=== PATIENT | female | born 1945 | race Caucasian/White ===

== ENCOUNTER 2018-03-22 22:49 | Observation (INO) ==
--- NOTE | 2018-03-22 23:07 | ED ---
HPI General Chief complaint: Nausea/Vomiting/Diarrhea Stated complaint: vomiting/evac Time Seen by Provider: 03/22/18 22:58 Source: patient Mode of arrival: ambulatory Limitations: no limitations History of Present Illness HPI Narrative: Patient is a 73-year-old female who presents the emergency room for evaluation of nausea, vomiting and diarrhea. Patient reports that prior to coming to the emergency room, she ate some SOBE noodles at [employer]. Reports that she then went to the movie theater to watch a movie. Patient reports that during this movie, she began to feel sick. Patient reports that she went to the bathroom and vomited multiple patient reports that she felt sick to her stomach and then had multiple episodes of diarrhea. Reports that she felt as if she was going to pass out so she laid on the ground where bystanders found her and called EMS for help. Patient reports no chest pain or shortness of breath, no headache or dizziness, no abdominal pain, patient is reports that she feels nauseous and sick to her stomach. MD complaint: Reports nausea, vomiting and diarrhea Onset (ago): hour(s) Description of Vomiting: food contents Description of Diarrhea: resolved Associated Abdominal Pain: No Quality: Reports cramping and aching Pain Consistency: now resolved Relieving factors: vomiting Exacerbating factors: eating Associated symptoms: Reports nausea/vomiting Related Data Home Medications Medication Instructions Recorded Confirmed amlodipine 10 mg PO DAILY 03/22/18 03/22/18 clonidine HCl 0.1 mg PO DAILY PRN 03/22/18 03/22/18 hydrocodone-acetaminophen 1 tab PO Q8H PRN 03/22/18 03/22/18 labetalol 200 mg PO Q6H 03/22/18 03/22/18 lisinopril 20 mg PO DAILY 03/22/18 03/22/18 lorazepam 1 mg PO HS 03/22/18 03/22/18 melatonin 10 mg PO HS PRN 03/22/18 03/22/18 omeprazole-sodium bicarbonate 2 cap PO DAILY 03/22/18 03/22/18 [Zegerid] pravastatin 40 mg PO DAILY 03/22/18 03/22/18 tizanidine 4 mg PO DAILY 03/22/18 03/22/18 triamterene-hydrochlorothiazid 0.5 cap PO DAILY 03/22/18 03/22/18 Allergies Allergy/AdvReac Type Severity Reaction Status Date / Time No Known Allergies Allergy Verified 03/22/18 23:08 Review of Systems ROS: all other systems reviewed are negative PMFSH History History Provided By: Patient Medical History Medical History History of high blood pressure (Acute) History of high cholesterol (Acute) Hx of hysterectomy (Acute) Hx of osteoarthritis (Acute) Surgical History Surgical History History of mandibular surgery (Acute) History of orthopedic surgery (Acute) History of tubal ligation (Acute) Hx of cholecystectomy (Acute) Social History Social History Substance History: No History of Abuse Smoking Status: Never smoker How Often Do You Have a Drink Containing Alcohol: 2 to 4 times a month Recent Travel in [facility] within the Last 8 Weeks: No Recent Out of Country Travel within the Last 8 Weeks: No Exam Narrative Exam Narrative: GENERAL: moderate distress SKIN: Focused skin assessment warm/dry. HEAD: Atraumatic. Normocephalic. EYES: Pupils equal and round. No scleral icterus. No injection or drainage. ENT: No nasal bleeding or discharge. Mucous membranes pink and moist. NECK: Trachea midline. No JVD. CARDIOVASCULAR: Regular rate and rhythm. No murmur appreciated. RESPIRATORY: No accessory muscle use. Clear to auscultation. Breath sounds equal bilaterally. GASTROINTESTINAL: Abdomen soft, non-tender, nondistended. Hepatic and splenic margins not palpable. MUSCULOSKELETAL: No obvious deformities. No clubbing. No cyanosis. No edema. NEUROLOGICAL: Awake and alert. No obvious cranial nerve deficits. Motor grossly within normal limits. Normal speech. PSYCHIATRIC: Appropriate mood and affect; insight and judgment normal. Course Initial Documented Vital Signs Temperature 98.6 F 03/22/18 23:04 Pulse Rate 78 03/22/18 23:04 Respiratory Rate 16 03/22/18 23:04 Blood Pressure 167/64 H 03/22/18 23:04 Pulse Oximetry 100 03/22/18 23:04 Last Documented Vital Signs Temperature 98.6 F 03/22/18 23:04 Pulse Rate 95 H 03/23/18 02:49 Respiratory Rate 16 03/23/18 02:49 Blood Pressure 167/60 H 03/23/18 02:49 Pulse Oximetry 98 03/23/18 02:49 Medical Decision Making MDM Narrative Medical decision making narrative: During the course of the patients emergency department visit, the patients history, examination, and differential diagnosis were reviewed with the patient. The patient was placed on a panel monitor with oximetry and frequent blood pressure monitoring. The patient had an IV access obtained and blood work sent for analysis. The patient was initially provided IV zofran, IV fluids At 1147pm - patient with multiple episodes of diarrhea - stool culture for cdiff ordered. The patients laboratory studies were reviewed and remarkable for wbc 17.9, hgb 12.1, hct 34.6, platelets 309 sodium 142, potassium 4.0, carbon dioxide 20.4, chloride 114, BUN19 creatinine 0.77, magnesium is 1.4, calcium 8.4 C. difficile cultures are pending. CT of abdomen pelvis shows no obstruction or acute/focal inflammatory changes. She has a fatty liver, upper limits of normal to mildly enlarged. Patient was reevaluated, patient reports that she is not feeling any better, she has not been able to stop having diarrhea since she has been in the emergency room. Patient does not feel strong enough to go home, plan to observe overnight for IV fluids as well as antiemetics and serial abdominal evaluations. case reviewed with Dr. White who accepts pt to service Medical Screen Exam Complete: Yes Emergency Medical Condition: Yes Differential Diagnosis Differential Diagnosis: Differential includes gastritis, gastroenteritis, ACS, arrhythmia, electrolyte abnormality, food poisoning Medical Records Medical records reviewed: Yes I reviewed the patient's medical records. Lab Data Result diagrams: 03/23/18 00:40 03/23/18 00:40 Lab Results 03/23/18 03/23/18 Range/Units 00:40 00:40 CBC w Diff Slide review pending WBC 17.9 H (4.0-11.0) th/mm3 RBC 3.97 L (4.00-5.30) mil/mm3 Hgb 12.1 (11.6-15.3) gm/dL Hct 34.6 L (35.0-46.0) % MCV 87.1 (80.0-100.0) fL MCH 30.6 (27.0-34.0) pg MCHC 35.1 (32.0-36.0) % RDW 11.9 (11.6-17.2) % Plt Count 309 (150-450) th/mm3 MPV 8.4 (7.0-11.0) fL Neut % (Auto) 87.6 H (16.0-70.0) % Lymph % (Auto) 3.2 L (9.0-44.0) % [place] % (Auto) 7.5 (0.0-8.0) % Eos % (Auto) 0.4 (0.0-4.0) % Baso % (Auto) 1.3 (0.0-2.0) % Neut # (Auto) 15.7 H (1.8-7.7) th/mm3 Lymph # (Auto) 0.6 L (1.0-4.8) th/mm3 [place] # (Auto) 1.3 H (0.0-0.9) th/mm3 Eos # (Auto) 0.1 (0.0-0.4) th/mm3 Baso # (Auto) 0.2 (0.0-0.2) th/mm3 Differential Comment . Sodium 142 (136-145) meq/L Potassium 4.0 (3.5-5.1) meq/L Chloride 114 H (98-107) meq/L Carbon Dioxide 20.4 L (21.0-32.0) meq/L Anion Gap 8 (5-15) meq/L BUN 19 H (7-18) mg/dL Creatinine 0.77 (0.50-1.00) mg/dL Estimated GFR 73 L (>89) mL/min Random Glucose 130 H (74-106) mg/dL Calcium 8.4 L (8.5-10.1) mg/dL Magnesium 1.4 L (1.5-2.5) mg/dL Total Bilirubin 0.2 (0.2-1.0) mg/dL AST 21 (15-37) U/L ALT 21 (10-53) U/L Alkaline Phosphatase 83 (45-117) U/L Total Creatine Kinase 219 H (26-192) U/L CK-MB (CK-2) 2.1 (0.5-3.6) ng/mL CK-MB (CK-2) % 1.0 (0.0-4.0) % Troponin I Less than 0.02 L (0.02-0.05) ng/mL Total Protein 7.2 (6.4-8.2) g/dL Albumin 3.7 (3.4-5.0) g/dL Lipase 59 L (73-393) U/L Imaging Data Radiologist's impression: Chest X-Ray 03/22/18 23:10 CONCLUSION: No evidence of acute cardiopulmonary disease. Abdomen/Pelvis CT 03/23/18 01:51 CONCLUSION: 1. No obstruction or acute/focal inflammatory changes. 2. Fatty liver, upper limits of normal to mildly enlarged. 3. Previous cholecystectomy and hysterectomy. ECG Data EKG Prior to Arrival: No Attestation: I personally reviewed and interpreted this ECG as follows: Prior ECG tracings: available for review Interpretation: EKG at 0036: NSR at 80bpm, qt/qtc: 369/405, nonspecific t wave changes - there is no change when compared to her previous ekg from 2007 which she carries with her at all times Discharge Plan Discharge Disposition Patient Disposition: 30 Still Patient Discharge Condition Condition: Fair Discharge Details Diagnosis: Intractable diarrhea, Intractable nausea and vomiting Physicians Team ED Provider: Doreen Seaman Primary Care Provider: Renzo Zambrano Rxs /Orders / Referrals /Forms Prescriptions: No Action clonidine HCl 0.1 mg Tablet 0.1 mg PO DAILY PRN (Reason: Hypertension) RF: 0 labetalol 200 mg Tablet 200 mg PO Q6H RF: 0 pravastatin 40 mg Tablet 40 mg PO DAILY RF: 0 tizanidine 4 mg Tablet 4 mg PO DAILY RF: 0 lisinopril 20 mg Tablet 20 mg PO DAILY RF: 0 hydrocodone-acetaminophen 10-325 mg Tablet 1 tab PO Q8H PRN (Reason: Pain) RF: 0 triamterene-hydrochlorothiazid 37.5-25 mg Capsule 0.5 cap PO DAILY RF: 0 amlodipine 10 mg Tablet 10 mg PO DAILY RF: 0 lorazepam 1 mg Tablet 1 mg PO HS RF: 0 omeprazole-sodium bicarbonate [Zegerid] 20-1.1 mg-gram Capsule 2 cap PO DAILY RF: 0 melatonin 10 mg Tablet 10 mg PO HS PRN (Reason: Sleep) RF: 0 Status ED Status: With Doctor
[2018-03-22] MEDS ORDERED: Famotidine PF Inj 20 MG/2 ML Vial IV.PUSH ONE (23:10)
[2018-03-22] MEDS ORDERED: Sod Chloride 0.9% Inj 1,000 ML IV.SIG ONE (23:10)
--- NOTE | 2018-03-23 00:48 | XR ---
EXAM DATE: 03/23/2018 12:40 AM EDT AGE/SEX: 73 years / Female INDICATIONS: Short of breath. CLINICAL DATA: This is the patient's initial encounter. Patient reports that signs and symptoms have been present for 1 day and indicates a pain score of 0/10. MEDICAL/SURGICAL HISTORY: None. None. COMPARISON: No prior exams available for comparison. FINDINGS: No infiltrate, effusion or pneumothorax demonstrated. Mild, symmetric and benign-appearing biapical p leural thickening/scarring seen. Cardiomediastinal silhouette within normal limits. CONCLUSION: No evidence of acute cardiopulmonary disease. Electronically signed by: Chema Santiago MD 03/23/2018 12:47 AM EDT
[2018-03-23 00:57] LABS: Baso # (Auto) 0.2 th/mm3 (0.0-0.2); Baso % (Auto) 1.3 % (0.0-2.0); Eos # (Auto) 0.1 th/mm3 (0.0-0.4); Eos % (Auto) 0.4 % (0.0-4.0); Hematocrit 34.6 % (35.0-46.0); Hemoglobin 12.1 gm/dL (11.6-15.3); Lymph # (Auto) 0.6 th/mm3 (1.0-4.8); Lymph % (Auto) 3.2 % (9.0-44.0); Mean Corpuscular HGB Conc 35.1 % (32.0-36.0); Mean Corpuscular Hemoglobin 30.6 pg (27.0-34.0); Mean Corpuscular Volume 87.1 fL (80.0-100.0); Mean Platelet Volume 8.4 fL (7.0-11.0); Mono # (Auto) 1.3 th/mm3 (0.0-0.9); Mono % (Auto) 7.5 % (0.0-8.0); Neut # (Auto) 15.7 th/mm3 (1.8-7.7); Neut % (Auto) 87.6 % (16.0-70.0); Platelet Count 309 th/mm3 (150-450); Red Blood Count 3.97 mil/mm3 (4.00-5.30); Red Cell Distribution Width 11.9 % (11.6-17.2); White Blood Count 17.9 th/mm3 (4.0-11.0)
[2018-03-23 01:18] LABS: Chloride 114 meq/L (98-107); Sodium 142 meq/L (136-145)
[2018-03-23 01:21] LABS: Calcium 8.4 mg/dL (8.5-10.1)
[2018-03-23 01:22] LABS: Albumin 3.7 g/dL (3.4-5.0); Anion Gap 8 meq/L (5-15); Blood Urea Nitrogen 19 mg/dL (7-18); Carbon Dioxide 20.4 meq/L (21.0-32.0); Glucose,Random 130 mg/dL (74-106); Lipase 59 U/L (73-393); Magnesium 1.4 mg/dL (1.5-2.5)
[2018-03-23] MEDS ORDERED: Magnesium Sulfate Inj 2 GM in Sodium Chlor 0.9% Inj 96 ML IV.SIG ONE (01:24)
[2018-03-23 01:25] LABS: Alanine Aminotransferase 21 U/L (10-53); Aspartate Aminotransferase 21 U/L (15-37); Glomerular Filtration Rate 73 mL/min (>89)
[2018-03-23 01:26] LABS: Total Protein 7.2 g/dL (6.4-8.2)
[2018-03-23 01:27] LABS: Alkaline Phosphatase 83 U/L (45-117); Creatine Kinase 219 U/L (26-192)
[2018-03-23 01:40] LABS: Creatine Kinase MB 2.1 ng/mL (0.5-3.6)
--- NOTE | 2018-03-23 02:37 | CT ---
EXAM DATE: 03/23/2018 2:26 AM EDT AGE/SEX: 73 years / Female INDICATIONS: Nausea. Vomiting. Diarrhea. CLINICAL DATA: This is the patient's initial encounter. Patient reports that signs and symptoms have been present for 1 day and indicates a pain score of 10/10. MEDICAL/SURGICAL HISTORY: Hypertension. Hysterectomy. Cholecystectomy. Tubal ligation. ORAL CONTRAST: No oral contrast ingested. RADIATION DOSE: 11.54 CTDI (mGy) COMPARISON: No prior exams available for comparison. TECHNIQUE: Multiple contiguous axial images were obtained through the abdomen and pelvis following b olus infusion of 100 ml Omnipaque 350 (iohexol) nonionic water-soluble contrast as a single exam do se. No oral contrast ingested. Using automated exposure control and adjustment of the mA and/or kV a ccording to patient size, radiation dose was kept as low as reasonably achievable to obtain optimal d iagnostic quality images. DICOM format image data is available electronically for review and compari son. FINDINGS: Liver measures 18 cm craniocaudal and is fatty infiltrated. No focal hepatic lesion demonstrated. Pat ient has had previous cholecystectomy. Common bile duct measures approximately 6 mm. Pancreas within normal limits. Spleen, adrenal glands and kidneys are within normal limits. No obstruction or acute inflammatory changes are seen of the gastrointestinal tract. No free fluid or free air. No lymphadenopathy. Previous hysterectomy. No pelvic mass or inflammatory changes. There is atherosclerosis of the abdominal aorta. No aneurysm. Visualized lung bases are clear. No acute bony abnormalities are demonstrated. There are degenerative changes of the lumbar spine. Grade 1 degenerative anterolisthesis seen at L4/L5. CONCLUSION: 1. No obstruction or acute/focal inflammatory changes. 2. Fatty liver, upper limits of normal to mildly enlarged. 3. Previous cholecystectomy and hysterectomy. Electronically signed by: Chema Santiago MD 03/23/2018 2:35 AM EDT
[2018-03-23] MEDS ORDERED: Bisacodyl 10 MG Supp RECTAL PRN (03:05)
[2018-03-23] MEDS ORDERED: Prochlorperazine 25 MG Supp RECTAL PRN (03:05)
[2018-03-23 03:16] LABS: Bilirubin,Urine Negative (Negative); Clarity,Urine Clear (Clear); Color,Urine Yellow (Yellw/Straw); Glucose,Urine (UA) Negative (Negative); Leukocyte Esterase,Urine Negative (Negative); Nitrite,Urine Negative (Negative); Urobilinogen,Urine 0.2 mg/dL (Less than 2)
[2018-03-23 03:20] LABS: Activated Partial Thrombo Time 22.2 sec (24.3-30.1); Prothrombin Time 10.1 sec (9.8-11.6)
[2018-03-23 03:25] LABS: RBC,Urine 0-3 /hpf (0-3); Squamous Epithelial Cell,Urine 0-5 /hpf (0-5); WBC,Urine 0-5 /hpf (0-5)
[2018-03-23] MEDS: Labetalol 200 MG Tablet PO SCH ×3 (04:00→17:00)
[2018-03-23] MEDS: Sod Chloride 0.9% Inj 1,000 ML IV.CONT SCH ×2 (04:01→14:12)
[2018-03-23 08:03] VITALS: PULSE 80
[2018-03-23] MEDS ORDERED: Senna/Docusate Sodium 8.6/50 MG Tablet PO SCH (09:00)
--- NOTE | 2018-03-23 11:16 | P.HP ---
History of Present Illness Primary Care Physician: Renzo Zambrano MD Chief Complaint: Abdominal pain, n/v History of Present Illness: This is a pleasant 73-year-old female patient with a known medical history of hypertension who presented to the ED with complaints of abdominal pain, nausea vomiting and diarrhea. Patient states that she went out to eat on last night as well as a movie and during the movie she began to feel sick, she went to the bathroom and had multiple episodes of vomiting as well as diarrhea. She states she felt very weak and was brought in via EMS for evaluation. Patient states that she has been feeling overall at her normal state of health although on Tuesday night her and her sister went out to eat and her sister actually developed the same symptoms mental tester yesterday. Patient relates some of the symptoms to that dinner she had with her sister. Patient denies any recent fevers, chills, cough, shortness of breath, dysuria. She does admit to undergoing a root canal last week, was initially prescribed Z-Vamsi for which she finished, since then has followed up with her hide sorter who also prescribed her amoxicillin due to some residual infection. Patient states she took the first dose of amoxicillin yesterday. Patient is unsure of her symptoms could be related to this. Patient follows closely with her PCP, denies any new medication changes. She states that her last colonoscopy was 3 years ago which was reportedly negative. Denies any black or bloody stools. Does admit to GERD , takes a PPI twice a day per her GI specialist. At the time of assessment patient has improved significantly, denies any further weakness, does state that she has had roughly 8 bowel movements that have been liquid since midnight. She is tolerating clear liquids, will attempt to advance diet for lunch and assess response. - Diagnosis (1) Viral gastroenteritis (2) Intractable diarrhea (3) Intractable nausea and vomiting Review of Systems All other systems reviewed negative except as stated in HPI PMFSH - History History Provided By: Patient - Medical History Medical History: Medical History (Last Reviewed 03/23/18 @ 11:51 by Clarissa Painter) History of high blood pressure History of high cholesterol Hx of hysterectomy Hx of osteoarthritis - Surgical History Surgical History: Surgical History (Last Reviewed 03/23/18 @ 11:51 by Clarissa Painter) History of mandibular surgery History of orthopedic surgery History of tubal ligation Hx of cholecystectomy - Family History Family History: Family History (Last Updated 03/23/18 @ 11:52 by Clarissa Painter) Other Family history non-contributory - Social History I have reviewed the patient's Social History: Yes - Tobacco History Smoking Status: Never smoker - Alcohol History How Often Do You Have a Drink Containing Alcohol: 2 to 4 times a month - Substance Use History Substance History: No History of Abuse - Travel History Recent Travel in the [place] Within the Last 8 Weeks: No Recent Travel Out of the Country Within the Last 8 Weeks: No - Immunization History Tetanus Immunization: Unsure Medications and Allergies Active Medications: Active Medications Al Hydroxide/Mg Hydroxide (Milk Of Magnesia Liq) 30 ml PO Q12H PRN PRN Reason: Mild Constipation Bisacodyl (Dulcolax Supp) 10 mg RECTAL DAILY PRN PRN Reason: SEVERE CONSITIPATION Sodium Chloride (Ns Inj) 1,000 mls @ 100 mls/hr IV.CONT .Q10H [facility] Last Admin: 03/23/18 04:01 Dose: 100 mls/hr Labetalol HCl (Trandate) 200 mg PO Q6H [facility] Last Admin: 03/23/18 04:00 Dose: 200 mg Lactulose (Lactulose Liq) 30 ml PO DAILY PRN PRN Reason: SEVERE CONSITIPATION Ondansetron HCl (Zofran Inj) 4 mg IV.PUSH Q6H PRN PRN Reason: NAUSEA OR VOMITING Last Admin: 03/23/18 04:56 Dose: 4 mg Prochlorperazine (Compazine Supp) 25 mg RECTAL Q12HR PRN PRN Reason: NAUSEA OR VOMITING Senna/Docusate Sodium (Chaya-Colace) 1 tab PO BID [facility] Last Admin: 03/23/18 10:15 Dose: Not Given Sennosides (Senokot) 17.2 mg PO Q12H PRN PRN Reason: Moderate Constipation Sodium Chloride (Ns Flush) 2 ml IV.FLUSH PRN PRN PRN Reason: FLUSH AFTER USING IV ACCESS Allergies Allergy/AdvReac Type Severity Reaction Status Date / Time ondansetron [From Zofran] Allergy Swelling Verified 03/23/18 07:08 of Lip/Tongue/Throat Home Medications Medication Instructions Recorded Confirmed Type amlodipine 10 mg PO DAILY 03/22/18 03/22/18 History clonidine HCl 0.1 mg PO DAILY PRN 03/22/18 03/22/18 History hydrocodone-acetaminophen 1 tab PO Q8H PRN 03/22/18 03/22/18 History labetalol 200 mg PO Q6H 03/22/18 03/22/18 History lisinopril 20 mg PO DAILY 03/22/18 03/22/18 History lorazepam 1 mg PO HS 03/22/18 03/22/18 History melatonin 10 mg PO HS PRN 03/22/18 03/22/18 History omeprazole-sodium bicarbonate 2 cap PO DAILY 03/22/18 03/22/18 History [Zegerid] pravastatin 40 mg PO DAILY 03/22/18 03/22/18 History tizanidine 4 mg PO DAILY 03/22/18 03/22/18 History triamterene-hydrochlorothiazid 0.5 cap PO DAILY 03/22/18 03/22/18 History Exam Vital signs: Vital Signs 03/22/18 23:04 03/22/18 23:10 03/23/18 02:49 Temperature 98.6 F Pulse Rate 78 95 H Respiratory Rate 16 16 Blood Pressure 167/64 H 167/60 H Pulse Oximetry 100 99 98 03/23/18 04:37 03/23/18 06:30 03/23/18 07:30 Temperature 98.5 F Pulse Rate 87 80 Respiratory Rate 16 18 16 Blood Pressure 140/55 L 140/67 Pulse Oximetry 99 99 Intake & Output 03/22/18 03/23/18 03/23/18 18:59 06:59 18:59 Intake Total 1100 / 1100 Output Total 400 / 400 Balance 700 / 700 Weight 58.18 kg Intake: IV 1100 / 1100 Magnesium Sulfate Inj 2 GM In 100 / 100 NS Inj 96 ML @ 50 mls/hr IV.SIG ONCE ONE Rx#:[id number] NS Inj 1,000 ML @ Wide Open IV. 1000 / 1000 SIG BOLUS ONE Rx#:[id number] Output: Urine 200 / 200 Urine/Stool Mix 200 / 200 Other: Date of Last Bowel Movement 03/23/18 # Bowel Movements 3 # Incontinent Bowel Movements 0 Narrative: GENERAL: Well-developed, well-nourished patient in NAD. SKIN: Warm and dry. No rash. HEAD: Normocephalic. Atraumatic. EYES: Pupils equal and round. No scleral icterus. No injection or drainage. ENT: No nasal bleeding or discharge. Mucous membranes pink and moist. NECK: Supple. Trachea midline. CARDIOVASCULAR: Regular rate and rhythm. S1, S2 noted. No murmur appreciated. RESPIRATORY: No accessory muscle use. Clear to auscultation. Breath sounds equal bilaterally. GASTROINTESTINAL: Abdomen soft, non-tender, nondistended. Normoactive bowel sounds x4. No Tenderness MUSCULOSKELETAL: No obvious deformities. Extremities without clubbing, cyanosis , or edema. NEUROLOGICAL: Awake and alert. No obvious cranial nerve deficits. Motor grossly within normal limits. 5/5 muscle strength in bilateral upper and lower extremities. Normal speech. PSYCHIATRIC: Appropriate mood and affect; insight and judgment normal. Results - Labs CBC & Chem 7: 03/23/18 00:40 03/23/18 00:40 Labs: Laboratory Results - last 24 hr 03/22/18 03/23/18 03/23/18 23:55 00:40 00:40 CBC w Diff Slide review pending WBC 17.9 H RBC 3.97 L Hgb 12.1 Hct 34.6 L MCV 87.1 MCH 30.6 MCHC 35.1 RDW 11.9 Plt Count 309 MPV 8.4 Neut % (Auto) 87.6 H Lymph % (Auto) 3.2 L [place] % (Auto) 7.5 Eos % (Auto) 0.4 Baso % (Auto) 1.3 Neut # (Auto) 15.7 H Lymph # (Auto) 0.6 L [place] # (Auto) 1.3 H Eos # (Auto) 0.1 Baso # (Auto) 0.2 WBC Differential . Diff Scan Auto diff confirmed Differential Comment . PT 10.1 INR 1.0 APTT 22.2 L Sodium Potassium Chloride Carbon Dioxide Anion Gap BUN Creatinine Estimated GFR Random Glucose Calcium Magnesium Total Bilirubin AST ALT Alkaline Phosphatase Total Creatine Kinase CK-MB (CK-2) CK-MB (CK-2) % Troponin I Total Protein Albumin Lipase Urine Color Urine Clarity Urine pH Ur Specific [place] Urine Protein Urine Glucose (UA) Urine Ketones Urine Occult Blood Urine Nitrate Urine Bilirubin Urine Urobilinogen Ur Leukocyte Esterase Urine RBC Urine WBC Ur Squamous Epith Cells Micro UA Comment Ur Microscopic Review Urine Culture Comments Stl C.difficile DNA Amp Negative St C. diff Tox Epid 027 Negative 03/23/18 03/23/18 00:40 03:00 CBC w Diff WBC RBC Hgb Hct MCV MCH MCHC RDW Plt Count MPV Neut % (Auto) Lymph % (Auto) [place] % (Auto) Eos % (Auto) Baso % (Auto) Neut # (Auto) Lymph # (Auto) [place] # (Auto) Eos # (Auto) Baso # (Auto) WBC Differential Diff Scan Differential Comment PT INR APTT Sodium 142 Potassium 4.0 Chloride 114 H Carbon Dioxide 20.4 L Anion Gap 8 BUN 19 H Creatinine 0.77 Estimated GFR 73 L Random Glucose 130 H Calcium 8.4 L Magnesium 1.4 L Total Bilirubin 0.2 AST 21 ALT 21 Alkaline Phosphatase 83 Total Creatine Kinase 219 H CK-MB (CK-2) 2.1 CK-MB (CK-2) % 1.0 Troponin I Less than 0.02 L Total Protein 7.2 Albumin 3.7 Lipase 59 L Urine Color Yellow Urine Clarity Clear Urine pH 5.0 Ur Specific [place] 1.010 Urine Protein Negative Urine Glucose (UA) Negative Urine Ketones Negative Urine Occult Blood Trace Urine Nitrate Negative Urine Bilirubin Negative Urine Urobilinogen 0.2 Ur Leukocyte Esterase Negative Urine RBC 0-3 Urine WBC 0-5 Ur Squamous Epith Cells 0-5 Micro UA Comment Culture not ind Ur Microscopic Review Microscopic reviewed Urine Culture Comments Culture not ind Stl C.difficile DNA Amp St C. diff Tox Epid 027 - Imaging Impressions Chest X-Ray 03/22/18 23:10 CONCLUSION: No evidence of acute cardiopulmonary disease. Abdomen/Pelvis CT 03/23/18 01:51 CONCLUSION: 1. No obstruction or acute/focal inflammatory changes. 2. Fatty liver, upper limits of normal to mildly enlarged. 3. Previous cholecystectomy and hysterectomy. Caprini VTE Risk Assessment Caprini VTE Risk Assessment: Moderate/High Risk (score >= 2) Caprini Risk Assessment Model: Point Value = 1 Point Value = 2 Point Value = 3 Point Value = 5 Age 41-60 Minor surgery BMI > 25 kg/m2 Swollen legs Varicose veins or History of unexplained or recurrent spontaneous Oral contraceptives or hormone replacement Sepsis (< 1 month) Serious lung disease, including pneumonia (< 1 month) Abnormal pulmonary function Acute myocardial infarction Congestive heart failure (< 1 month) History of inflammatory bowel disease Medical patient at bed rest Age 61-74 Arthroscopic surgery Major open surgery (> 45 min) Laparoscopic surgery (> 45 min) Malignancy Confined to bed (> 72 hours) Immobilizing plaster cast Central venous access Age >= 75 History of VTE Family history of VTE Factor V Leiden Prothrombin [id number] Lupus anticoagulant Anticardiolipin antibodies Elevated serum homocysteine Heparin-induced thrombocytopenia Other congenital or acquired thrombophilia Stroke (< 1 month) Elective arthroplasty Hip, pelvis, or leg fracture Acute spinal cord injury (< 1 month) Prophylaxis Regimen: Total Risk Factor Score Risk Level Prophylaxis Regimen 0-1 Low Early ambulation 2 Moderate Order ONE of the following: *Sequential Compression Device (SCD) *Heparin 5000 units SQ BID 3-4 Higher Order ONE of the following medications: *Heparin 5000 units SQ TID *Enoxaparin/Lovenox 40 mg SQ daily (WT < 150 kg, CrCl > 30 mL/min) *Enoxaparin/Lovenox 30 mg SQ daily (WT < 150 kg, CrCl > 10-29 mL/min) *Enoxaparin/Lovenox 30 mg SQ BID (WT < 150 kg, CrCl > 30 mL/min) AND/OR *Sequential Compression Device (SCD) 5 or more Highest Order ONE of the following medications: *Heparin 5000 units SQ TID (Preferred with Epidurals) *Enoxaparin/Lovenox 40 mg SQ daily (WT < 150 kg, CrCl > 30 mL/min) *Enoxaparin/Lovenox 30 mg SQ daily (WT < 150 kg, CrCl > 10-29 mL/min) *Enoxaparin/Lovenox 30 mg SQ BID (WT < 150 kg, CrCl > 30 mL/min) AND *Sequential Compression Device (SCD) Assessment and Plan - Assessment (1) Viral gastroenteritis Code(s): A08.4 - Viral intestinal infection, unspecified Status: Acute (2) Intractable diarrhea Code(s): R19.7 - Diarrhea, unspecified Status: Acute (3) Intractable nausea and vomiting Code(s): R11.2 - Nausea with vomiting, unspecified Status: Acute - Plan This is a 73-year-old patient with: Abdominal pain, nausea, vomiting and diarrhea x 1 day Leukocytosis suspect secondary to above -Possible viral gastroenteritis secondary to meal, sister has same complaints who ate the same meal. -White blood cell 17,000 on presentation. Will monitor CBC. Afebrile. -Abdominal/pelvis CT reviewed showing no acute findings no inflammatory or infectious process noted. -IV hydration, continue. Encourage p.o. intake, tolerating clear liquids. Advance diet as tolerated, assess tolerance. -Patient symptoms have significantly improved overnight. -Zofran as needed for nausea. -C. difficile negative. Will add stool studies. -Will add lactobacillus as well as PPI. -Supportive care. Hypertension, chronic: Continue home medications. Monitor BP trends. DVT prophylaxis: SCDs. Heparin. Discharge Planning: Will assess for clinical improvement.
[2018-03-23] MEDS ORDERED: Triamterene/HCTZ 37.5 MG/25 MG Tablet PO SCH (13:00)
[2018-03-23] MEDS ORDERED: Lisinopril 20 MG Tablet PO SCH (13:00)
[2018-03-23] MEDS: Lactobacillus Acidophilus/L. Spores Tablet PO SCH ×2 (14:08→17:00)
[2018-03-23 15:40] LABS: Baso # (Auto) 0.1 th/mm3 (0.0-0.2); Baso % (Auto) 0.8 % (0.0-2.0); Eos # (Auto) 0.3 th/mm3 (0.0-0.4); Eos % (Auto) 2.5 % (0.0-4.0); Hematocrit 30.1 % (35.0-46.0); Lymph # (Auto) 1.1 th/mm3 (1.0-4.8); Lymph % (Auto) 9.9 % (9.0-44.0); Mean Corpuscular HGB Conc 33.1 % (32.0-36.0); Mean Corpuscular Hemoglobin 29.5 pg (27.0-34.0); Mean Platelet Volume 7.5 fL (7.0-11.0); Mono # (Auto) 0.6 th/mm3 (0.0-0.9); Mono % (Auto) 5.5 % (0.0-8.0); Neut % (Auto) 81.3 % (16.0-70.0); Platelet Count 284 th/mm3 (150-450); Red Blood Count 3.38 mil/mm3 (4.00-5.30); Red Cell Distribution Width 11.8 % (11.6-17.2); White Blood Count 11.1 th/mm3 (4.0-11.0)
[2018-03-23 15:46] LABS: Potassium 3.5 meq/L (3.5-5.1)
[2018-03-23 15:48] LABS: Calcium 8.2 mg/dL (8.5-10.1)
[2018-03-23 15:49] LABS: Carbon Dioxide 23.8 meq/L (21.0-32.0)
[2018-03-23 16:22] VITALS: RESP 19; TEMP 98.7; O2SAT 97
--- NOTE | 2018-03-23 16:24 | ECG ---
Date Performed: 03/23/2018 Time Performed: 00:36:15 PTAGE: 73 years EKG: Sinus rhythm NONSPECIFIC T-WAVE ABNORMALITY When compared to previous tracing, nonspecific changes are more Promi nent. BORDERLINE ECG PREVIOUS TRACING : 02/24/2000 11.36.25 DOCTOR: Juan A Hill Interpretating Date/Time 03/23/2018 16:23:19
[2018-03-23 17:22] VITALS: BP 163/74
[2018-03-23] MEDS ORDERED: LORazepam 1 MG Tablet PO SCH (21:00)
[2018-03-24] MEDS ORDERED: amLODIPine 10 MG Tablet PO SCH (09:00)
[2018-03-27 16:38] LABS: Chloride, Feces 66 mmol/L (See Comment); Osmolality, Feces 354 mOsm/kg (See Comment); Potassium, Feces 14 mmol/L; Sodium, Feces 128 mmol/L
== END 2018-03-23 17:41 | disposition home or self-care (01) ==
LOC: PHEDA 22:49 → PHED 22:49 → PH3 03-23 08:00
PROVIDERS: ADMIT Internal Medicine; ATTEND Internal Medicine